=== PATIENT | male | born 1995 | race Caucasian/White ===

== ENCOUNTER 2017-02-10 01:04 | Emergency (ER) | payer OTHER ==
[~2017-02-10] VITALS: Ht 177.8 cm; Wt 63.6 kg
[2017-02-10] MEDS ORDERED: OLAN5TAB2 PO (01:18)
[2017-02-10] MEDS ORDERED: RISP2 PO (01:18)
[2017-02-10 02:44] VITALS: BP 115/82
== END 2017-02-10 02:51 | disposition home or self-care (01) ==
LOC: EMS 01:07
DX: F31.9 Bipolar disorder, unspecified (principal); F17.210 Nicotine dependence, cigarettes, uncomplicated; F12.90 Cannabis use, unspecified, uncomplicated; Z88.8 Allergy status to other drugs, medicaments and biological substances
CPT/HCPCS: 99284; 99406

== ENCOUNTER 2025-01-26 12:33 | Emergency (ER) | payer MEDICARE, MEDICAID ==
[~2025-01-26] VITALS: Ht 177.8 cm; Wt 64.9 kg
[~2025-01-26 12:33] MED LIST: OLAN5TAB52 PO; RISP2TAB45 PO
[2025-01-26 13:27] VITALS: BP 116/77; PULSE 90; RESP 14; TEMP 98.3; O2SAT 99
[2025-01-26 14:23] LABS: CALCIUM, TOTAL 8.9 mg/dL (8.8-10.5); CREATININE 0.78 mg/dL (0.60-1.30); GLOMERULAR FILTR. RATE CALC > 60 mL/min (>60); GLUCOSE,RANDOM 80 mg/dL (70-110); PLATELET COUNT (AUTO) 174 K/uL (150-450); RED BLOOD CELL COUNT(AUTO) 4.43 MIL/uL (4.50-5.90); RED CELL DISTRIBUTION WIDTH 13.2 % (11.5-14.5); SODIUM SERUM 142 mmol/L (136-145); UREA NITROGEN, BLOOD 15 mg/dL (7-18); WHITE BLOOD COUNT (AUTO) 7.9 K/uL (4.5-11.0)
[2025-01-26] MEDS: ZIPRASIDONE MESYLATE 20 MG/VIAL IM ONE (15:04)
[2025-01-26] MEDS: LORazepam 2 MG/ML VIAL IM ONE (15:04)
[2025-01-26 16:12] LABS: COVID AG,FIA SOURCE NASAL SWAB
[2025-01-26 16:19] LABS: APPEARANCE,URINE CLEAR (CLEAR); GLUCOSE, URINE (UA) NEGATIVE (NEGATIVE); LEUKOCYTE ESTERASE ,URINE NEGATIVE (NEGATIVE); NITRATE,URINE NEGATIVE (NEGATIVE); OCCULT BLOOD,URINE TRACE (NEGATIVE); PH,URINE DRUG SCREEN 6.5 (5.0-8.0); SPECIFIC GRAVITIY, URINE 1.009 (1.003-1.030)
[2025-01-26 16:24] LABS: ALCOHOL, URINE DRUG SCREEN NEGATIVE (NEGATIVE); AMPHET/METH SCREEN,URINE NEGATIVE (NEGATIVE); BARBITURATE SCREEN, URINE NEGATIVE (NEGATIVE); CANNABINOID SCREEN,URINE NEGATIVE (NEGATIVE); COCAINE SCREEN,URINE NEGATIVE (NEGATIVE); METHADONE SCREEN, URINE NEGATIVE (NEGATIVE)
[2025-01-26 16:33] LABS: SARS-COV2 (COVID) ANTIGEN,FIA Negative (Negative)
[2025-01-26 17:28] LABS: SQUAMOUS EPITHELIAL CELL,UR Rare /LPF (None Seen)
== END 2025-01-26 19:30 ==
LOC: EMS 12:43
DX: F25.9 Schizoaffective disorder, unspecified (principal); F17.210 Nicotine dependence, cigarettes, uncomplicated; Z88.8 Allergy status to other drugs, medicaments and biological substances; Z20.822 Contact with and (suspected) exposure to COVID-19
CPT/HCPCS: 99291; 87426; 80048; 81001; 85025; 36415; 96372; 80307; G0480; J1200; J2060; J3486